=== PATIENT | male | born 1940 ===

== ENCOUNTER 2018-03-31 05:30 | Day surgery (SDC) | payer OTHER ==
[~2018-03-31 05:30] MED LIST: AMLODIPINE BESY10 MG PO; METFORMIN HCL500 MG PO; [UNRECOGNIZED DRUG - OTHER] PO
[2018-03-31] MEDS ORDERED: DUI500 PO (08:57)
[2018-03-31] MEDS ORDERED: TRAM1TAB98 PO (08:57)
== END 2018-03-31 12:50 | disposition home or self-care (01) ==
LOC: CIR.AMB 05:30
DX: M23.241 Derangement of anterior horn of lateral meniscus due to old tear or injury, right knee (principal); M23.221 Derangement of posterior horn of medial meniscus due to old tear or injury, right knee; M65.861 Other synovitis and tenosynovitis, right lower leg; M10.061 Idiopathic gout, right knee